=== PATIENT | male | born 1965 | race Caucasian/White ===

== ENCOUNTER → 2018-08-22 | Outpatient (CLI) | payer OTHER ==
--- NOTE | 2018-08-23 16:58 | MR ---
EXAMINATION TYPE: MR shoulder LT wo con DATE OF EXAM: 08/22/2018 COMPARISON: None HISTORY: Lt shoulder pain, limited ROM x 6 years TECHNIQUE: Multiplanar, multisequence imaging of the left shoulder is performed without contrast. FINDINGS: Rotator Cuff: There is severe focal tendinosis of the distal and insertional fibers of the supraspina tus although signal intensity does not reach that of fluid and therefore no discrete tear is seen at this location. Within the most anterior fibers of the supraspinatus at the bursal surface there is a partial thickness 3 x 4 mm tear at the myotendinous junction that is low-grade. Bursal surface frayin g of the distal fibers are seen. There is bursal surface fraying of the infraspinatus fibers with mild tendinopathy demonstrated as in trinsic heterogenous signal of the insertional fibers. No tear. The teres minor and subscapularis tendons and muscles are within normal limits of muscular volume. Th ere is normal signal intensity of the teres minor. There is heterogeneous signal intensity of the dis eric subscapularis related to mild tendinopathy. Acromioclavicular Joint: There is moderate acromioclavicular arthropathy with capsular hypertrophy an d small marginal osteophytes without significant impingement on the supraspinatus or signal ulceratio n of the supraspinatus. There is mild downsloping of the acromion. Glenohumeral Joint: Very minimal joint space narrowing and chondral thinning. Labrum: There is a tear of the posterior superior labrum with diminutive appearance. No para labral c yst. Labral degeneration is seen of the posterior inferior glenoid labrum. Biceps Tendon: The long head of biceps is in normal location within bicipital groove. There is mild b iceps insertional tendinosis with increased signal near its insertion on the biceps anchor. Bone marrow signal: No focal abnormal marrow signal is appreciated. Other: Very small amount of fluid is seen within the subcoracoid as well as the subdeltoid/subacromia l bursa that may relate to bursitis clinically IMPRESSION: 1. Low-grade partial-thickness bursal surface tear of the supraspinatus at the myotendinous junction measuring 3 x 4 mm. Severe focal tendinosis is seen of the distal and insertional fibers of the supra spinatus. 2. Mild tendinopathy and bursal surface fraying of the infraspinatus without tear. 3. Mild biceps insertional and distal subscapularis tendinopathy. 4. Superior posterior labral tear and inferior posterior labral degeneration. 5. Scant amount of bursal fluid within the subcoracoid and subdeltoid/subacromial bursa. This could r elate to bursitis clinically. 6. Moderate acromioclavicular arthropathy and mild glenohumeral arthropathy.
== END | disposition home or self-care (01) ==
LOC: RADMRIMAIN 15:17
PROVIDERS: ATTEND Orthopaedic Surgery
DX: M75.112 Incomplete rotator cuff tear or rupture of left shoulder, not specified as traumatic (principal); S43.432A Superior glenoid labrum lesion of left shoulder, initial encounter; M12.812 Other specific arthropathies, not elsewhere classified, left shoulder; M67.814 Other specified disorders of tendon, left shoulder; M75.82 Other shoulder lesions, left shoulder

== ENCOUNTER 2018-10-25 08:07 | Day surgery (SDC) | payer OTHER ==
--- NOTE | 2018-10-24 17:34 | HP ---
HISTORY AND PHYSICAL REASON FOR ADMISSION: Surgery scheduled for 10/25/2018 Roderick Alvarez is a 53-year-old patient seen with progressive left shoulder pain. Treatment options were discussed with him. He elected to proceed with left shoulder arthroscopy. Consent was obtained. PAST MEDICAL HISTORY: Noncontributory. PAST SURGICAL HISTORY: Knee arthroscopy. DAILY MEDICATIONS: None. ALLERGIES: None reported. SOCIAL HISTORY: He smokes 1-2 cigars per month. PHYSICAL EVALUATION: Physical examination of the left shoulder: Flexion 150 degrees, abduction 140 degrees, external rotation 60 degrees with weakness. There is tenderness along the anterior lateral acromion rotator cuff insertion site. Impingement sign is positive at 90 degrees. Distal neurovascular exam is intact. RADIOGRAPHS: Radiographs of the left shoulder revealed a type 2 anterior acromion. Cystic changes of the tuberosity and acromioclavicular joint osteoarthritis. Left shoulder MRI revealed a rotator cuff tear, acromioclavicular joint osteoarthritis and a labral tear. IMPRESSION: Left shoulder impingement with rotator cuff tear, acromioclavicular arthritis and labral tear. PLAN: Left shoulder arthroscopy with subacromial decompression, possible arthroscopic rotator cuff repair. Probable Nitish procedure and debridement. Surgery scheduled for 10/25/2018. MMODL / IJN: [id number] /
[~2018-10-25 08:07] MED LIST: DEXAMETHASONE SOD PHOSPHATE 10 MG/ML 1 ML VIAL IV ONE; HYDROmorphone 0.5 MG/0.5 ML SYRINGE IVP PRN; LIDOCAINE 1% 20 ML VIAL (10MG/ML) FOR IV START INTRADERMA PRN; MIDAZOLAM (PF) 2 MG/2 ML VIAL IV PRN; ONDANSETRON 4 MG/2 ML VIAL IVP ONE; SCOPOLAMINE 1.5MG/72HR PATCH TRANSDERM ONE; ceFAZolin IN SWFI 2 GM/20 ML SYRINGE IVP ONE
[2018-10-25] MEDS: LACTATED RINGERS 1,000 ML IV SCH ×2 (08:43→10:09)
[2018-10-25] MEDS ORDERED: fentaNYL (PF) 50 MCG/ML 2 ML AMP IV ONE (08:52)
--- NOTE | 2018-10-25 09:25 | P.ONQ ---
Anesthesiology Proc Note - PNB - Peripheral Nerve Block Performed Left Interscalene Single Time Out Performed: Yes ([id number]) Procedure Start Time: 08:53 Procedure Stop Time: 09:00 Indication: Acute Post-Operative Pain, Dx/Pain Location (Left Shoulder Pain), Requested by physician ( ) Sedation Type: Sedate with meaningful contact maintained Preparation: Sterile Prep Position: Supine Catheter: None Needle Types: 100du.tv Needle Size: 50mm (2") Needle Gauge: 21 Technique: Ultrasound Injectate: 0.5% Ropivacaine (see comment for volume) (20ml) Blood Aspirated: No Pain Paresthesia on Injection Noted: No Resistance on Injection: Normal Events: Uneventful and Well Tolerated
[2018-10-25] MEDS ORDERED: ROPIVACAINE 5 MG/ML 30 ML VIAL ONE (10:08)
[2018-10-25] MEDS ORDERED: PROPOFOL 10 MG/ML 20 ML VIAL IV ONE (10:08)
[2018-10-25] MEDS ORDERED: fentaNYL (PF) 50 MCG/ML 2 ML AMP ONE (10:08)
[2018-10-25] MEDS ORDERED: LIDOCAINE 1% INJ 10MG/ML (20 ML MDV) ONE (10:08)
[2018-10-25] MEDS ORDERED: ROCURONIUM BROMIDE 10 MG/ML 10 ML VIAL IV ONE (10:08)
[2018-10-25] MEDS ORDERED: MIDAZOLAM 2 MG/2 ML VIAL ONE (10:08)
[2018-10-25] MEDS ORDERED: GLYCOPYRROLATE 0.2 MG/ML 2 ML VIAL ONE (10:08)
[2018-10-25] MEDS ORDERED: NEOSTIGMINE 1 MG/ML 10 ML VIAL ONE (10:08)
--- NOTE | 2018-10-25 11:45 | P.OP ---
Date of Procedure: 10/25/18 Preoperative Diagnosis: Left shoulder impingement Postoperative Diagnosis: 1. Left shoulder rotator cuff tear 2. Left shoulder impingement 3. Left shoulder acromioclavicular joint osteoarthritis Procedure(s) Performed: 1. Left shoulder arthroscopic rotator cuff repair 2. Left shoulder arthroscopic subacromial decompression 3. Left shoulder arthroscopic Nitish procedure Implants: 24.75 Arthrex swivel lock anchors Anesthesia: giuliano DOWNS Surgeon: Johann Prajapati Equipment Driver #1: Lj Smith Estimated Blood Loss (ml): 10 Pathology: none sent Condition: stable Disposition: PACU Indications for Procedure: 53-year-old patient seen with progressive left shoulder pain. After having treatment options discussed, he elected to proceed with arthroscopy. Operative Findings: see description of procedure Description of Procedure: Patient underwent an interscalene block by department of anesthesia. The patient was then taken to the operative suite. The patient underwent a general anesthetic by the department of anesthesia. The patient was placed into a lateral position and secured. There was appropriate padding of the bony prominence. Left shoulder was then prepped and draped in normal sterile orthopedic fashion. We placed the extremity in 10 pounds of longitudinal traction. A posterior incision was now made for a posterior working portal site. The trocar and cannula were inserted into the glenohumeral joint. Arthroscopy was initiated. Spinal needle was now inserted anteriorly, to ascertain the anterior working portal site. An incision was now made in that area, a trocar was inserted followed by a probe. The glenohumeral joint was stable with no evidence for chondromalacia. The labrum was stable. The biceps tendon was stable. Instruments were now removed from glenohumeral joint. Utilizing the posterior working portal site, the trocar and cannula were inserted into the subacromial space. Arthroscopy initiated. I made an incision 2 fingerbreadths lateral to the acromion. I introduced my trocar followed by my ArthroCare ablator. I now began ablating thick subacromial bursal tissue, which exposed the undersurface of the anterior acromion. There was diminished subacromial space. There was a very prominent anterior acromion. A motorized bur was introduced and a subacromial decompression was performed. I also excised some osteophytes off the inferior aspect of the distal clavicle. The AC joint was visualized and noted to be fairly arthritic. The motorized bur was introduced in the anterior portal site and a Nitish procedure was performed without difficulty, decompressing the AC joint nicely. I turned my attention to the rotator cuff. There was superficial tearing noted along the distal supraspinatus area. Upon further probing of that area there was a through and through perforation. There is a motorized shaver to debride the tissue getting down to stable tendon tissue. We had a 1 cm1.5 cm defect/tear. I abraded the footprint with a motorized bur. I passed 2 everted mattress sutures through good bites of rotator cuff tendon. We noted a potential dogears posteriorly and I passed 2 Arthrex suture links. I now made to punch holes along the area the footprint and sutures were passed through 2 different Arthrex swivel lock anchors. Those anchors wanted time were placed into a pre-punch holes and the eyelets were held in position while Elroy SIMON tension the sutures and introduced the anchors into a repeat punch hole while the anchor position. Both anchors have good purchase with good compression of the tendon along the footprint. All residual suture limbs were now clipped. Instruments now removed from the portal sites. All portal sites were approximated with nylon suture. Sterile dressings were applied followed by a shoulder immobilizer. Lj SIMON assisted in this complex case. The patient was awakened, transferred to a bed, and taken to recovery in stable condition.
[2018-10-25 11:49] VITALS: TEMP 98
[2018-10-25 12:53] VITALS: RESP 16
[2018-10-25 13:16] VITALS: BP 124/87; PULSE 83
== END 2018-10-25 14:05 | disposition home or self-care (01) ==
LOC: OR 08:07
PROVIDERS: ATTEND Orthopaedic Surgery
DX: M75.102 Unspecified rotator cuff tear or rupture of left shoulder, not specified as traumatic (principal); M25.812 Other specified joint disorders, left shoulder; M75.42 Impingement syndrome of left shoulder; M19.012 Primary osteoarthritis, left shoulder; M25.712 Osteophyte, left shoulder; Z79.1 Long term (current) use of non-steroidal anti-inflammatories (NSAID); Z87.891 Personal history of nicotine dependence
CPT/HCPCS: 29827; 29824; 29826; 64415; C1713 ×2; C1765; J2250 ×2; J1100; J2710; J2405; J2001; J3010; J2795; J2704; J0690

== ENCOUNTER → 2022-10-13 | Outpatient (CLI) | payer OTHER ==
--- NOTE | 2022-10-13 10:56 | US ---
EXAMINATION TYPE: US renal artery duplex complete DATE OF EXAM: 10/13/2022 COMPARISON: NONE CLINICAL HISTORY: 57-year-old male I73.9 pvd unsp R60.0 localized edema. LEFT waters swelling x 2 days that is now improving, NO HTN, NOT ON BP MEDS TECHNIQUE: Multiple sonographic images of the kidneys are obtained. Color Doppler and spectral wavefo rm analysis of the renal arteries. FINDINGS: Aortic peak systolic velocity 51.5 cm/s. MEASUREMENTS: RENAL SIZE: Rt Kidney: 11.1 x 5.3 x 5.5cm with an incidental 2.0 cm centrally located upper pole cyst. Lt Kidney: 12.0 x 4.5 x 5.8cm No hydronephrosis on either side. RESISTANCE INDEX Right: 0.6 Left: 0.6 RA/AO RATIO (< 3.5 ) Right: 1.7 Left: 2.1 RA VELOCITY ( < 180 cm/s) Right: 87.9 Left: 105.9 Incidental: Possible fatty infiltration of the liver given increased echogenicity. IMPRESSION: 1. No sonographic/Doppler evidence for renal artery stenosis on either side. 2. No hydronephrosis. Incidental 2.0 cm benign cyst right kidney. 3. Incidental: Correlate for mild to moderate hepatic steatosis.
--- NOTE | 2022-10-13 10:58 | US ---
EXAMINATION TYPE: US venous doppler duplex LE DATE OF EXAM: 10/13/2022 9:26 AM COMPARISON: NONE CLINICAL HISTORY: 57-year-old male I73.9 pvd unsp R60.0 localized edema. LEFT waters swelling x 2 days, gone now, no h/o anything SIDE PERFORMED: Bilateral TECHNIQUE: The lower extremity deep venous system is examined utilizing real time linear array sonog frank with graded compression, doppler sonography and color-flow sonography. FINDINGS: VESSELS IMAGED: Common Femoral Vein Deep Femoral Vein Greater Saphenous Vein * Femoral Vein Popliteal Vein Small Saphenous Vein * Proximal Calf Veins Posterior tibial veins (* superficial vessels) Right Leg: Negative for DVT Left Leg: Negative for DVT IMPRESSION: No evidence for DVT within the bilateral lower extremities.
== END | disposition home or self-care (01) ==
LOC: RADUSWWP 07:50
PROVIDERS: ATTEND Family Medicine
DX: I73.9 Peripheral vascular disease, unspecified (principal); R60.0 Localized edema
CPT/HCPCS: 93922; 93970; 93975

== ENCOUNTER → 2023-04-03 | Outpatient (CLI) | payer OTHER ==
--- NOTE | 2023-04-05 19:46 | MR ---
EXAMINATION TYPE: MR knee RT wo con DATE OF EXAM: 04/03/2023 COMPARISON: none HISTORY: Rt knee all over pain, swelling and locking x7-10 years, HX of knee surgery TECHNIQUE: Multiplanar, multisequence imaging of the right knee is performed without IV contrast. FINDINGS: MEDIAL MENISCUS: There is diminutive posterior horn medial meniscus which may reflect prior surgical intervention versus tear. Correlate clinically. Anterior horn is intact. LATERAL MENISCUS: Anterior and posterior horns are intact without tear. CRUCIATE LIGAMENTS: The anterior and posterior cruciate ligaments are intact and unremarkable. COLLATERAL LIGAMENTS: The medial collateral ligament and lateral collateral ligament complex are inta ct and unremarkable. EXTENSOR MECHANISM: Visualized quadriceps and patellar tendons are intact. EFFUSION: No significant suprapatellar joint effusion. POPLITEAL CYST: No popliteal/cook cyst. TRICOMPARTMENT SPACES: Moderate narrowing medial tibiofemoral joint space and patellofemoral joint sp carla with early changes of chondromalacia patella. CARTILAGE: Cartilaginous thinning medial femoral condyle without shine defects seen. BONE MARROW SIGNAL: No focal abnormal marrow signal is appreciated. OTHER: No additional significant abnormality is appreciated. IMPRESSION: 1.There is diminutive posterior horn medial meniscus which may reflect prior surgical intervention ve rsus tear. Correlate clinically. 2. Changes of osteoarthritis.
== END | disposition home or self-care (01) ==
LOC: RADMRIMAIN 19:03
PROVIDERS: ATTEND Orthopaedic Surgery
DX: M17.11 Unilateral primary osteoarthritis, right knee (principal)

== ENCOUNTER → 2023-05-26 | Outpatient (CLI) | payer OTHER ==
[2023-05-26 17:11] LABS: ALT 60 U/L (10-49); AST 29 U/L (14-35); Albumin 4.7 d/dL (3.8-4.9); Albumin/Globulin Ratio 1.96 Ratio (1.60-3.17); Alkaline Phosphatase 78 U/L (41-126); Blood Urea Nitrogen 15.9 mg/dL (9.0-27.0); Carbon Dioxide 25.6 mmol/L (21.6-31.8); Chloride 106 mmol/L (96-109); Chol/HDL Ratio 4.22 Ratio; Globulin 2.4 d/dL (1.6-3.3); Glucose 105 mg/dL (70-110); LDL Cholesterol,Calculated 81.1 mg/dL (0.0-131.0); Sodium 141 mmol/L (135-145); Total Bilirubin 0.4 mg/dL (0.3-1.2); Total Protein 7.1 d/dL (6.2-8.2)
[2023-05-26 23:35] LABS: Basophils # (A) 0.04 X 10*3/uL (0.00-0.10); Basophils % (A) 0.6 %; Eosinophils # (A) 0.13 X 10*3/uL (0.04-0.35); Eosinophils % (A) 1.8 %; HCT 47.5 % (39.6-50.0); HGB 15.9 d/dL (13.0-17.0); Lymphocytes # (A) 1.73 X 10*3/uL (0.90-5.00); Lymphocytes % (A) 24.4 %; MCH 32.5 pg (27.0-32.0); MCHC 33.5 d/dL (32.0-37.0); MCV 97.1 FL (80.0-97.0); Monocytes # (A) 0.72 X 10*3/uL (0.20-1.00); Monocytes % (A) 10.2 %; NRBC Per 100 WBC 0 X 10*3/uL (0.00-0.01); Neutrophils # (A) 4.45 X 10*3/uL (1.80-7.70); Neutrophils % (A) 62.7 %; Platelet Count 186 X 10*3/uL (140-440); RBC 4.89 X 10*6/uL (4.40-5.60); RDW 12.3 % (11.5-14.5); WBC 7.09 X 10*3/uL (4.50-10.00)
== END | disposition home or self-care (01) ==
LOC: LABWHC1 07:52
PROVIDERS: ATTEND Orthopaedic Surgery
DX: Z01.812 Encounter for preprocedural laboratory examination (principal); E78.2 Mixed hyperlipidemia; M23.91 Unspecified internal derangement of right knee; R00.1 Bradycardia, unspecified; R94.31 Abnormal electrocardiogram [ECG] [EKG]
CPT/HCPCS: 36415; 80053; 80061; 85025; 93005

== ENCOUNTER 2023-06-22 09:46 | Day surgery (SDC) | payer OTHER ==
[2023-06-20 15:43] VITALS: BMI 31.8
--- NOTE | 2023-06-22 07:21 | HP ---
HISTORY AND PHYSICAL DATE OF SURGERY: 06/22/2023. HISTORY OF PRESENT ILLNESS: Roderick Alvarez is a 57-year-old patient, seen with progressive right knee pain. We discussed options for treatment. He elected to proceed with right knee arthroscopy. Consent was obtained. PAST MEDICAL HISTORY: Hyperlipidemia. PAST SURGICAL HISTORY: Knee arthroscopy and wrist surgery. DAILY MEDICATIONS: 1. Pravastatin. 2. Ibuprofen. ALLERGIES: None. SOCIAL HISTORY: He smokes 1 cigar a month. PHYSICAL EVALUATION OF THE RIGHT KNEE: Range of motion is +1/2 to 135 degrees. Mild effusion. Tenderness, medial joint line. Positive medial Morris's. Ligaments are stable. Hip rotation is without pain. Distal neurovascular exam is intact. IMAGING STUDIES: Radiographs of the right knee revealed moderate osteoarthritis. MRI right knee revealed medial meniscal tear and moderate osteoarthritic changes. IMPRESSION: 1. Internal derangement of right knee with medial meniscal tear. 2. Hyperlipidemia. PLAN: Right knee arthroscopy with partial medial meniscectomy and debridement. MMODL / IJN: [id number] /
[~2023-06-22 09:46] MED LIST changes: -DEXAMETHASONE SOD PHOSPHATE 10 MG/ML 1 ML VIAL IV ONE; +DEXAMETHASONE SOD PHOSPHATE 4 MG/ML 1 ML VIAL IV ONE; +LACTATED RINGERS 1,000 ML IV SCH; -LIDOCAINE 1% 20 ML VIAL (10MG/ML) FOR IV START INTRADERMA PRN; -MIDAZOLAM (PF) 2 MG/2 ML VIAL IV PRN; -SCOPOLAMINE 1.5MG/72HR PATCH TRANSDERM ONE; -ceFAZolin IN SWFI 2 GM/20 ML SYRINGE IVP ONE
[2023-06-22] MEDS ORDERED: BUPIVACAINE (PF) 0.25% 30 ML VIAL SQ ONE ×2 (11:36→12:02)
[2023-06-22] MEDS ORDERED: LIDOCAINE 2% INJ 20 MG/ML (2 ML VIAL) ONE (11:38)
[2023-06-22] MEDS ORDERED: PROPOFOL 10 MG/ML 20 ML VIAL IV ONE (11:38)
[2023-06-22] MEDS ORDERED: fentaNYL (PF) 50 MCG/ML 2 ML AMP ONE (11:38)
[2023-06-22] MEDS ORDERED: MIDAZOLAM 2 MG/2 ML VIAL ONE (11:38)
[2023-06-22] MEDS ORDERED: KETOROLAC 15 MG/ML 1 ML VIAL ONE (11:38)
--- NOTE | 2023-06-22 12:32 | P.OP ---
Date of Procedure: 06/22/23 Preoperative Diagnosis: Internal derangement right knee Postoperative Diagnosis: 1. Tear medial and lateral meniscus right knee 2. Grade 4 chondromalacia femoral sulcus right knee 3. Reactive synovitis medial, lateral and suprapatellar compartments right knee 4. Grade 2/3 chondromalacia medial femoral condyle right knee Procedure(s) Performed: 1. Arthroscopic partial medial and lateral meniscectomy right knee 2. Arthroscopic microfracture femoral sulcus right knee 3. Arthroscopic partial synovectomy medial, lateral and suprapatellar compartments right knee 4. Arthroscopic chondroplasty medial femoral condyle right knee Anesthesia: YARELI, local Surgeon: Johann Prajapati Estimated Blood Loss (ml): 6 Pathology: none sent Condition: stable Disposition: PACU Indications for Procedure: 57-year-old gentleman seen with progressive right knee pain. After having treatment options discussed, he elected to proceed with arthroscopy. Operative Findings: See description of procedure Description of Procedure: Patient was taken to the operative suite. Patient underwent a general anesthetic by the department of anesthesia. Patient was given preoperative antibiotics. The right lower extremity was placed in a well-padded arthroscopic leg hayes. The right leg was prepped and draped in the normal sterile orthopedic fashion. A lateral parapatellar and suprapatellar incision was made. Trochars were inserted. Arthroscopy was initiated. Suprapatellar pouch revealed diffuse thick reactive some of-itis. The patellofemoral joint appeared to articulate congruently. There was grade 3/4 chondromalacia femoral sulcus and grade 2 comminution of the patella.. The scope was guided into the medial gutter. No loose bodies or plica were identified. The scope was then guided into the medial compartment. A medial parapatellar incision was made. Trocar inserted followed by probe. There was a radial tear involving the posterior horn of the medial meniscus which was diminutive as well. There were grade 2/3 chondromalacia changes the medial femoral condyle with some osteochondral flap tears present. There was thick reactive synovitis anteriorly. I performed a partial medial meniscectomy getting down to stable meniscal tissue. I performed a chondroplasty of the medial femoral condyle getting down to stable osteochondral tissue. I performed a partial synovectomy decompressing reactive some-itis. The residual meniscus was stable. The residual osteochondral surface was stable. There was good decompression of the synovitis. Scope and probe were then guided into the intercondylar notch. Cruciates were identified, probed and found to be stable. The scope and probe were then guided into lateral compartment. There was a radial tear mid body lateral meniscus. There were grade 1 chondromalacia changes of the lateral compartment with no tears. There was some thick reactive some-itis anteriorly. I performed a partial lateral meniscectomy getting down to stable meniscal tissue. I performed a partial synovectomy decompressing reactive some-itis. The residual meniscus was stable. There was good decompression of some-itis. The scope was in guided back into the suprapatellar compartment. I used a motorized shaver into the suprapatellar compartment. I debrided some piecemeal manner fragments of meniscus I encountered. I performed a partial synovectomy. I performed a chondroplasty of the femoral sulcus. I did note an area of exposed bone along the femoral sulcus. I introduced a microfracture awl and created a microfracture in 3 separate areas of the femoral sulcus penetrating the bone with resultant bleeding at the microfracture site. I now probed the area was stable. I now took one more look on the entire knee, no residual debris. Instruments were now removed from the joint. The joint was infiltrated with .25% Marcaine. Steri-Strips were applied to the portal sites. Sterile dressings were applied. The patient was placed into a ROBE hose. No tourniquet was utilized. The patient was awakened, transferred to a bed and taken to recovery stable satisfactory condition.
[2023-06-22 16:01] VITALS: BP 127/84; PULSE 77; RESP 16; TEMP 97.8
== END 2023-06-22 14:09 | disposition home or self-care (01) ==
LOC: OR 09:46
PROVIDERS: ATTEND Orthopaedic Surgery
DX: S83.281A Other tear of lateral meniscus, current injury, right knee, initial encounter (principal); S83.241A Other tear of medial meniscus, current injury, right knee, initial encounter; M94.261 Chondromalacia, right knee; M17.11 Unilateral primary osteoarthritis, right knee; M65.861 Other synovitis and tenosynovitis, right lower leg; F17.210 Nicotine dependence, cigarettes, uncomplicated; E78.5 Hyperlipidemia, unspecified; Z79.899 Other long term (current) drug therapy; Z98.890 Other specified postprocedural states; X58.XXXA Exposure to other specified factors, initial encounter
CPT/HCPCS: 29879; 29880; J2250; J1100; J0690; J2405; J3010; J1885; J2704; J2001; J0665